=== PATIENT | female | born 1965 | race Hispanic/Latino ===

== ENCOUNTER 2024-12-21 20:06 | Emergency (ER) | payer BC ==
[~2024-12-21] VITALS: Ht 149.9 cm; Wt 63.5 kg
[~2024-12-21 20:06] MED LIST: PHEN-948 PO; TAMS-55 PO
--- NOTE | 2024-12-21 21:44 | NUR ---
PICC LINE REDRESSED, PT TOLERATED WELL
--- NOTE | 2024-12-21 21:55 | ERN ---
General Chief Complaint: Other Problems Stated Complaint: PICC LINE LEAKING Time Seen by MD: 20:13 Time Seen by Midlevel: 20:13 Source: patient History of Present Illness Initial Comments Patient is a 59-year-old female presenting to the emergency department for a PICC line evaluation. According to the patient while they were flushing her PICC line it began to leak. The infusion center told her to report to the ER for further evaluation. Patient has no complaints on arrival. Allergies: Coded Allergies: Sulfa (Sulfonamide Antibiotics) (Unverified Allergy, Unknown, 12/15/24) Home Meds Active Scripts Tamsulosin HCl (Flomax) 0.4 Mg Cap.er.24h, 0.4 MG PO DAILY for 30 Days, #30 CAPSULE.DR Prov:DEEPAK HOROWITZ NP 12/19/24 Phenazopyridine HCl (Phenazopyridine HCl) 200 Mg Tablet, 100 MG PO Q8H for 3 Days, #9 TAB Prov:DEEPAK HOROWITZ NP 12/19/24 Past Medical History Past Medical History: Kidney Stone Past Surgical History: Hysterectomy ROS Dictation CONSTITUTIONAL: Negative except for HPI HEAD/FACE: Negative except for HPI EENT: Negative except for HPI RESPIRATORY: Negative except for HPI GASTROINTESTINAL/ABDOMINAL: Negative except for HPI GENITOURINARY: Negative except for HPI MUSCULOSKELETAL: Negative except for HPI INTEGUMENTARY: Negative except for HPI NEUROLOGICAL/PSYCH: Negative except for HPI HEMATOLOGIC/LYMPHATIC: Negative except for HPI All Systems Negative, Except as noted above. 13 point review of systems assessed and all negative except for above. Physical Exam Physical Exam Dictation PHYSICAL EXAM: GENERAL: alert,, awake oriented x 3 HEENT: EOMI, Sclera non icteric, moist mucosa NECK: Supple, no JVD, trachea midline LUNGS: Clear breath sounds bilaterally. No wheezes HEART: Regular rate and rhythm. Normal S1 and S2, without murmurs ABD: Abdomen soft, nontender. Bowel sounds present EXT: No clubbing or cyanosis, NEURO: Alert and oriented to person, follows commands PICC line in place with no signs of infection, no active bleeding MDM MDM: Patient is a 59-year-old female presenting to the emergency department for a PICC line evaluation. According to the patient while they were flushing her PICC line it began to leak. The infusion center told her to report to the ER for further evaluation. Patient has no complaints on arrival. On physical examination the patient is in no acute distress. PICC line is in place with no evidence of infection. PICC line was flushed and redressed. No complications. Patient will be discharged home Differential diagnosis: PICC line evaluation wellness examination There are no social concerns with this patient. Prescription drug management Prescriptions will include: None Medical management and examination interpretation discussions were had by me with other qualified healthcare professionals as indicated for the patient's care. ED Course Orders Procedure Category Date Status Time *Nursing CPOE 12/21/24 Transmitted Communication: 20:33 Vital Signs Date Time Temp Pulse Resp B/P (MAP) Pulse Ox O2 Delivery O2 Flow Rate FiO2 12/21/24 22:00 98.6 88 18 132/78 97 Room Air* 0 21 12/21/24 20:51 99.0 92 18 149/94 97 Room Air* 0 21 12/21/24 20:07 99.0 92 18 144/94 97 Room Air DX & DISP Disposition: Discharge Departure Impression: Primary Impression: Bleeding from PICC line Condition: Stable Referrals: [facility] (PCP) I have reviewed the case, and I agree with, Diagnosis and Plan I performed the substantive portion of the visit. I have reviewed and personally made and approve the management plan that is documented in the note by myself or the PATTI. I acknowledge for responsibility for the patient's management plan. MARÍA URBAN Dec 21, 2024 21:55
[2024-12-21 22:00] VITALS: BP 132/78; PULSE 88; RESP 18; TEMP 98.6; O2SAT 97
== END 2024-12-21 22:02 | disposition home or self-care (01) ==
LOC: EDH 20:06
DX: T82.838A Hemorrhage due to vascular prosthetic devices, implants and grafts, initial encounter (principal); Z88.2 Allergy status to sulfonamides; Z90.710 Acquired absence of both cervix and uterus; Y82.8 Other medical devices associated with adverse incidents; Y92.89 Other specified places as the place of occurrence of the external cause
CPT/HCPCS: 99281